=== PATIENT | female | born 2000 | race Caucasian/White ===

== ENCOUNTER 2020-08-14 02:07 | Emergency (ER) | payer MEDICAID ==
[~2020-08-14] VITALS: Ht 162.6 cm; Wt 74.0 kg
[2020-08-14 03:23] VITALS: BP 127/81
== END 2020-08-14 04:19 | disposition home or self-care (01) ==
LOC: ER 02:07
DX: U07.1 COVID-19 (principal)
CPT/HCPCS: 87635; 99281; C9803